=== PATIENT | female | born 1950 | race American Indian/Alaskan Native ===

== ENCOUNTER 2016-12-13 08:49 | Outpatient (CLI) | payer MEDICARE ==
--- NOTE | 2016-12-13 13:06 | XRay Report ---
CHEST 2 VIEWS INDICATION: Chronic kidney disease. COMPARISON: 12/09/2015 FINDINGS: PA and lateral chest radiographs demonstrate new right-sided double-lumen catheter tip about the cavoatrial junction. Slightly smaller heart size with normal mediastinal and hilar contours. Mild aortic knob calcifications. Clear lungs. No pleural effusions or CHF. Mild multilevel spinal degenerative changes. CONCLUSION: No acute chest process with interval uncomplicated right-sided central catheter placement, as described. Thank you for the opportunity to participate in this patient's care.
== END 2016-12-13 08:50 | disposition home or self-care (01) ==
LOC: XRAY 08:49
PROVIDERS: ATTEND Internal Medicine Nephrology
DX: I13.2 Hypertensive heart and chronic kidney disease with heart failure and with stage 5 chronic kidney disease, or end stage renal disease (principal); N18.5 Chronic kidney disease, stage 5; I50.9 Heart failure, unspecified; E11.22 Type 2 diabetes mellitus with diabetic chronic kidney disease; I70.0 Atherosclerosis of aorta; M47.899 Other spondylosis, site unspecified
CPT/HCPCS: 71020

== ENCOUNTER 2017-01-24 09:19 | Emergency (ER) | payer MEDICARE ==
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
[2017-01-24 12:08] LABS: BUN/Creatinine Ratio 15.4; Calcium 9.5 mg/dL (8.4-10.2); Chloride 99.9 mmol/L (98-107); Potassium 4.9 mmol/L (3.6-5.0)
[2017-01-24 12:14] LABS: Hematocrit 37.4 % (30.3-42.9); Mean Corpuscular HGB Conc 32 % (30-34); Mean Corpuscular Hemoglobin 31 pg (28-32); Mean Corpuscular Volume 96 fl (79-97); Platelet Count 349 K/mm3 (140-440); Red Blood Count 3.91 M/mm3 (3.65-5.03); Red Cell Distribution Width 16.1 % (13.2-15.2); White Blood Count 5.2 K/mm3 (4.5-11.0)
[2017-01-24 13:50] VITALS: BP 130/62
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
== END 2017-01-24 15:01 | disposition home or self-care (01) ==
LOC: ED 09:19
DX: E11.22 Type 2 diabetes mellitus with diabetic chronic kidney disease (principal); I12.0 Hypertensive chronic kidney disease with stage 5 chronic kidney disease or end stage renal disease; Z99.2 Dependence on renal dialysis; N18.6 End stage renal disease; E78.00 Pure hypercholesterolemia, unspecified; Z79.82 Long term (current) use of aspirin; Z88.2 Allergy status to sulfonamides
CPT/HCPCS: 36415; 80048; 85025; 99283

== ENCOUNTER 2022-02-07 07:28 | Inpatient (IN) | payer MEDICARE, OTHER ==
[2022-02-07] MEDS ORDERED: SODIUM BICARB 8.4% 50 MEQ/50 ML SYRINGE IV ONE ×2 (09:36→09:38)
--- NOTE | 2022-02-07 10:11 | XRay Report ---
CHEST 1 VIEW 02/07/2022 9:45 AM INDICATION / CLINICAL INFORMATION: Altered Mental Status. COMPARISON: 12/13/2016 FINDINGS: SUPPORT DEVICES: None. HEART / MEDIASTINUM: No significant abnormality. LUNGS / PLEURA: No significant pulmonary or pleural abnormality. No pneumothorax. ADDITIONAL FINDINGS: No significant additional findings. IMPRESSION: 1. No acute findings. Signer Name: Evan Sales Jr, MD Signed: 02/07/2022 10:06 AM Workstation Name: [id number]
[2022-02-07 10:51] LABS: Albumin 4.3 g/dL (3.9-5); Calcium 10.4 mg/dL (8.4-10.2)
[2022-02-07 11:08] LABS: Basophils % (Auto) 0.6 % (0.0-1.8); Eosinophils # (Auto) 0.1 K/mm3 (0.0-0.4); Eosinophils % (Auto) 3.1 % (0.0-4.3); Hematocrit 30.5 % (30.3-42.9); Hemoglobin 9.8 gm/dl (10.1-14.3); Lymphocytes # (Auto) 1.5 K/mm3 (1.2-5.4); Lymphocytes % (Auto) 31.2 % (13.4-35.0); Mean Corpuscular HGB Conc 32 % (30-34); Mean Corpuscular Volume 96 fl (79-97); Monocytes # (Auto) 0.4 K/mm3 (0.0-0.8); Monocytes % (Auto) 7.9 % (0.0-7.3); Platelet Count 226 K/mm3 (140-440); Red Blood Count 3.19 M/mm3 (3.65-5.03); Red Cell Distribution Width 14.9 % (13.2-15.2)
[2022-02-07 11:12] LABS: Chol/HDL Ratio 2.05 %
--- NOTE | 2022-02-07 12:27 | Emergency Department Report ---
- General Chief complaint: Weakness Stated complaint: LOW BP PUI?: No Time Seen by Provider: 02/07/22 09:31 Source: patient, EMS Mode of arrival: Stretcher Limitations: No Limitations - History of Present Illness Initial comments: BRADYCARDIA. PATIENT WAS AT [facility], THEY CALLED EMS FOR BRADYCARDIA HR 40 MD Complaint: generalized weakness -: hour(s) Severity scale (0 -10): 0 Improves with: none Worsens with: none Associated Symptoms: denies: denies other symptoms, chest pain - Related Data Home Medications Medication Instructions Recorded Confirmed Last Taken AtorvaSTATin 10 mg PO QHS 06/11/16 06/11/16 Unknown Ferrous Gluconate [Fergon 325 MG 325 mg PO BID 06/11/16 06/11/16 Unknown tab] Furosemide [Lasix TAB] 80 mg PO BID 06/11/16 06/11/16 Unknown Previous Rx's Medication Instructions Recorded Last Taken Type Aspirin [Aspirin BABY CHEW TAB] 81 mg PO QDAY tab.chew 12/13/15 Unknown Rx Losartan [Cozaar] 25 mg PO QDAY #30 tablet 12/13/15 Unknown Rx Furosemide [Lasix TAB] 40 mg PO QDAY #20 tablet 06/11/16 Unknown Rx Hydralazine HCl [Apresoline TAB] 50 mg PO BID #30 tablet 06/11/16 Unknown Rx Allergies Allergy/AdvReac Type Severity Reaction Status Date / Time Sulfa (Sulfonamide Allergy Hives Verified 02/07/22 07:48 Antibiotics) ED Review of Systems ROS: Stated complaint: LOW BP Other details as noted in HPI Constitutional: denies: chills, fever Eyes: denies: eye pain, eye discharge, vision change ENT: denies: ear pain, throat pain Respiratory: denies: cough, shortness of breath, wheezing Cardiovascular: denies: chest pain, palpitations Endocrine: no symptoms reported Gastrointestinal: denies: abdominal pain, nausea, diarrhea Genitourinary: denies: urgency, dysuria, discharge Musculoskeletal: denies: back pain, joint swelling, arthralgia Skin: denies: rash, lesions Neurological: denies: headache, weakness, paresthesias Psychiatric: denies: anxiety, depression Hematological/Lymphatic: denies: easy bleeding, easy bruising ED Past Medical Hx - Past Medical History Hx Hypertension: Yes Hx Congestive Heart Failure: Yes Hx Diabetes: Yes Hx Renal Disease: Yes Additional medical history: high cholesterol - Surgical History Additional Surgical History: Port in Left arm - Social History Smoking Status: Never Smoker Substance Use Type: None - Medications Home Medications: Home Medications Medication Instructions Recorded Confirmed Last Taken Type Aspirin [Aspirin BABY CHEW TAB] 81 mg PO QDAY tab.chew 12/13/15 06/11/16 Unknown Rx Losartan [Cozaar] 25 mg PO QDAY #30 tablet 12/13/15 06/11/16 Unknown Rx AtorvaSTATin 10 mg PO QHS 06/11/16 06/11/16 Unknown History Ferrous Gluconate [Fergon 325 MG 325 mg PO BID 06/11/16 06/11/16 Unknown History tab] Furosemide [Lasix TAB] 40 mg PO QDAY #20 tablet 06/11/16 Unknown Rx Furosemide [Lasix TAB] 80 mg PO BID 06/11/16 06/11/16 Unknown History Hydralazine HCl [Apresoline TAB] 50 mg PO BID #30 tablet 06/11/16 Unknown Rx ED Physical Exam - General Limitations: No Limitations General appearance: alert, in no apparent distress - Head Head exam: Present: atraumatic, normocephalic - Eye Eye exam: Present: normal appearance - ENT ENT exam: Present: mucous membranes moist - Neck Neck exam: Present: normal inspection - Respiratory Respiratory exam: Present: normal lung sounds bilaterally. Absent: respiratory distress - Cardiovascular Cardiovascular Exam: Present: regular rate, normal rhythm. Absent: systolic murmur, diastolic murmur, rubs, gallop - GI/Abdominal GI/Abdominal exam: Present: soft, normal bowel sounds - Extremities Exam Extremities exam: Present: normal inspection - Back Exam Back exam: Present: normal inspection - Neurological Exam Neurological exam: Present: alert, oriented X3 - Psychiatric Psychiatric exam: Present: normal affect, normal mood - Skin Skin exam: Present: warm, dry, intact, normal color. Absent: rash ED Course Vital Signs 02/07/22 02/07/22 07:29 09:29 Temperature 98.0 F 97.6 F Pulse Rate 40 L 42 L Respiratory 16 20 Rate Blood Pressure 150/47 Blood Pressure 100/60 150/47 [Left] O2 Sat by Pulse 98 97 Oximetry ED Medical Decision Making - Lab Data Result diagrams: 02/07/22 10:03 02/07/22 10:03 - EKG Data -: EKG Interpreted by Id Rate: bradycardia - EKG Data Interpretation: no acute changes - Radiology Data Radiology results: report reviewed, image reviewed - Medical Decision Making bicarb given , HR went up to 7os spoke with dr Davis will admit Critical care attestation.: If time is entered above; I have spent that time in minutes in the direct care of this critically ill patient, excluding procedure time. ED Disposition Clinical Impression: Chronic renal insufficiency, Symptomatic bradycardia, Renal failure, Dizziness Disposition: ADMITTED INPATIENT Is pt being admited?: Yes Does the pt Need Aspirin: No Condition: Stable Referrals: PRIMARY CARE, [Primary Care Provider] - 3-5 Days
[2022-02-07] MEDS ORDERED: SODIUM CHLORIDE 0.9% 100 ML IV PRN (12:49)
[2022-02-07 14:57] LABS: Hepatitis B Surface Antigen Non-Reactive (Negative); Hepatitis C Virus Antibody Non-Reactive (NonReactive)
[2022-02-07] MEDS ORDERED: SODIUM CHLORIDE 0.9% 1000 ML 1,000 ML IV SCH (16:30)
[2022-02-07] MEDS ORDERED: MORPHINE 2 MG/1 ML INJ IV PRN (17:00)
[2022-02-07] MEDS ORDERED: ACETAMINOPHEN 325 MG TAB PO PRN (17:00)
[2022-02-07] MEDS ORDERED: ONDANSETRON 4 MG/2 ML INJ IV PRN (17:00)
[2022-02-07] MEDS: FERROUS GLUCONATE 324 MG TAB PO SCH (17:42)
[2022-02-07] MEDS: ASPIRIN 81 MG TAB CHEW PO SCH (17:42)
[2022-02-07] MEDS: LOSARTAN 25 MG TAB PO SCH (17:42)
[2022-02-07] MEDS ORDERED: hydrALAZINE 25 MG TAB PO SCH (22:00)
[2022-02-07] MEDS ORDERED: NON-FORMULARY EACH (Hydralazine Hcl [Apresoline Tab] 50 MG Tablet) PO SCH (22:00)
[2022-02-08 05:55] LABS: Basophils % (Auto) 0.7 % (0.0-1.8); Eosinophils # (Auto) 0.2 K/mm3 (0.0-0.4); Eosinophils % (Auto) 4.1 % (0.0-4.3); Hematocrit 30.8 % (30.3-42.9); Lymphocytes # (Auto) 1.2 K/mm3 (1.2-5.4); Lymphocytes % (Auto) 24.6 % (13.4-35.0); Mean Corpuscular HGB Conc 33 % (30-34); Mean Corpuscular Volume 93 fl (79-97); Monocytes # (Auto) 0.4 K/mm3 (0.0-0.8); Monocytes % (Auto) 7.3 % (0.0-7.3); Platelet Count 247 K/mm3 (140-440); Red Blood Count 3.33 M/mm3 (3.65-5.03); Red Cell Distribution Width 14.6 % (13.2-15.2)
[2022-02-08 06:15] LABS: Albumin 4.1 g/dL (3.9-5); Calcium 9.7 mg/dL (8.4-10.2)
--- NOTE | 2022-02-08 06:52 | History and Physical Report ---
History of Present Illness Date of examination: 02/07/22 Date of admission: 02/07/22 16:24 Chief complaint: Decreased heart rate and generalized weakness History of present illness: -71year-old female with history of end-stage renal disease and hypertension comes to the emergency room for severe weakness. Patient was in the dialysis clinic when she was found to have low heart rate of around 40 for which she was sent here. In the emergency room patient's heart rate fluctuated between 40 and 60. EKG was consistent with second-degree AV block. Cardiology consult was requested. No shortness of breath. No chest pain. No exacerbating or relieving factors. No fever or chills. - Past Medical History Hx Hypertension: Yes Hx Congestive Heart Failure: Yes Hx Diabetes: Yes Hx Renal Disease: Yes Additional medical history: high cholesterol - Surgical History Additional Surgical History: Port in Left arm - Social History Smoking Status: Never Smoker Substance Use Type: None - Medications Home Medications: Home Medications Medication Instructions Recorded Confirmed Last Taken Type Aspirin [Aspirin BABY CHEW TAB] 81 mg PO QDAY tab.chew 12/13/15 06/11/16 Unknow n Rx Losartan [Cozaar] 25 mg PO QDAY #30 tablet 12/13/15 06/11/16 Unknown Rx AtorvaSTATin 10 mg PO QHS 06/11/16 06/11/16 Unknown History Ferrous Gluconate [Fergon 325 MG 325 mg PO BID 06/11/16 06/11/16 Unknown History tab] Furosemide [Lasix TAB] 40 mg PO QDAY #20 tablet 06/11/16 Unknown Rx Furosemide [Lasix TAB] 80 mg PO BID 06/11/16 06/11/16 Unknown History Hydralazine HCl [Apresoline TAB] 50 mg PO BID #30 tablet 06/11/16 Unknown Rx Review of Systems ROS: Stated complaint: LOW BP Other details as noted in HPI Constitutional: denies: chills, fever Eyes: denies: eye pain, eye discharge, vision change ENT: denies: ear pain, throat pain Respiratory: denies: cough, shortness of breath, wheezing Cardiovascular: denies: chest pain, palpitations Endocrine: no symptoms reported Gastrointestinal: denies: abdominal pain, nausea, diarrhea Genitourinary: denies: urgency, dysuria, discharge Musculoskeletal: denies: back pain, joint swelling, arthralgia Skin: denies: rash, lesions Neurological: denies: headache, weakness, paresthesias Psychiatric: denies: anxiety, depression Hematological/Lymphatic: denies: easy bleeding, easy bruising Medications and Allergies Allergies Allergy/AdvReac Type Severity Reaction Status Date / Time Sulfa (Sulfonamide Allergy Hives Verified 02/07/22 07:48 Antibiotics) Home Medications Medication Instructions Recorded Confirmed Last Taken Type Aspirin [Aspirin BABY CHEW TAB] 81 mg PO QDAY tab.chew 12/13/15 02/08/22 Unknown Rx AtorvaSTATin 10 mg PO QHS 06/11/16 02/08/22 Unknown History AtorvaSTATin 10 mg PO DAILY 02/08/22 02/08/22 Unknown History B Complex 11/Folic/C/Biot/Zinc 1 each PO DAILY 02/08/22 02/08/22 Unknown History [Dialyvite with Zinc Tablet] Sevelamer Carbonate [Renvela] 2.4 g PO TID 02/08/22 02/08/22 Unknown History hydrALAZINE [Apresoline TAB] 100 mg PO TID 02/08/22 02/08/22 Unknown History Active Meds: Active Medications Acetaminophen (Acetaminophen 325 Mg Tab) 650 mg PO Q4H PRN PRN Reason: Pain MILD(1-3)/Fever >100.5/PALM Aspirin (Aspirin 81 Mg Tab Chew) 81 mg PO QDAY [facility] Last Admin: 02/07/22 17:42 Dose: Not Given Atorvastatin Calcium (Atorvastatin 10 Mg Tab) 10 mg PO QHS [facility] Last Admin: 02/07/22 23:10 Dose: 10 mg Ferrous Gluconate (Ferrous Gluconate 324 Mg Tab) 324 mg PO QDAY [facility] Last Admin: 02/07/22 17:42 Dose: Not Given Furosemide (Furosemide 40 Mg Tab) 40 mg PO QDAY [facility] Hydralazine HCl (Hydralazine 25 Mg Tab) 50 mg PO BID [facility] Last Admin: 02/07/22 23:10 Dose: 50 mg Sodium Chloride (Nacl 0.9%) 100 mls @ 999 mls/hr IV MARISOL PRN PRN Reason: Hypotension Sodium Chloride (Nacl 0.9% 1000 Ml) 1,000 mls @ 75 mls/hr IV DIRECT MICAELA Losartan Potassium (Losartan 25 Mg Tab) 25 mg PO QDAY [facility] Last Admin: 02/07/22 17:42 Dose: Not Given Morphine Sulfate (Morphine 2 Mg/1 Ml Inj) 2 mg IV Q4H PRN PRN Reason: Pain, Moderate (4-6) Ondansetron HCl (Ondansetron 4 Mg/2 Ml Inj) 4 mg IV Q8H PRN PRN Reason: Nausea And Vomiting Sodium Chloride (Sodium Chloride 0.9% 10 Ml Flush Syringe) 10 ml IV BID [facility] Last Admin: 02/07/22 23:10 Dose: 10 ml Sodium Chloride (Sodium Chloride 0.9% 10 Ml Flush Syringe) 10 ml IV PRN PRN PRN Reason: LINE FLUSH Exam - Constitutional Vitals: Temp Pulse Resp BP Pulse Ox 99.2 F 66 16 139/46 98 02/08/22 06:29 02/08/22 06:29 02/08/22 06:29 02/08/22 06:29 02/08/22 06:29 HEART Score - HEART Score Troponin: Troponin T 0.073 ng/mL (0.00-0.029) H 02/07/22 10:03 Results - Labs CBC & Chem 7: 02/08/22 05:06 02/08/22 05:06 Labs: Laboratory Last Values WBC 4.8 K/mm3 (4.5-11.0) 02/08/22 05:06 RBC 3.33 M/mm3 (3.65-5.03) L 02/08/22 05:06 Hgb 10.0 gm/dl (10.1-14.3) L 02/08/22 05:06 Hct 30.8 % (30.3-42.9) 02/08/22 05:06 MCV 93 fl (79-97) 02/08/22 05:06 MCH 30 pg (28-32) 02/08/22 05:06 MCHC 33 % (30-34) 02/08/22 05:06 RDW 14.6 % (13.2-15.2) 02/08/22 05:06 Plt Count 247 K/mm3 (140-440) 02/08/22 05:06 Lymph % (Auto) 24.6 % (13.4-35.0) 02/08/22 05:06 Harlan % (Auto) 7.3 % (0.0-7.3) 02/08/22 05:06 Eos % (Auto) 4.1 % (0.0-4.3) 02/08/22 05:06 Baso % (Auto) 0.7 % (0.0-1.8) 02/08/22 05:06 Lymph # (Auto) 1.2 K/mm3 (1.2-5.4) 02/08/22 05:06 Harlan # (Auto) 0.4 K/mm3 (0.0-0.8) 02/08/22 05:06 Eos # (Auto) 0.2 K/mm3 (0.0-0.4) 02/08/22 05:06 Baso # (Auto) 0.0 K/mm3 (0.0-0.1) 02/08/22 05:06 Seg Neutrophils % 63.3 % (40.0-70.0) 02/08/22 05:06 Seg Neutrophils # 3.1 K/mm3 (1.8-7.7) 02/08/22 05:06 Sodium 147 mmol/L (137-145) H 02/08/22 05:06 Potassium 4.2 mmol/L (3.6-5.0) 02/08/22 05:06 Chloride 101.1 mmol/L (98-107) 02/08/22 05:06 Carbon Dioxide 33 mmol/L (22-30) H D 02/08/22 05:06 Anion Gap 17 mmol/L 02/08/22 05:06 BUN 24 mg/dL (7-17) H 02/08/22 05:06 Creatinine 5.0 mg/dL (0.6-1.2) H 02/08/22 05:06 Estimated GFR 10 ml/min 02/08/22 05:06 BUN/Creatinine Ratio 5 % 02/08/22 05:06 Glucose 83 mg/dL (65-100) 02/08/22 05:06 POC Glucose 106 mg/dL (70-105) H 02/07/22 22:10 Calcium 9.7 mg/dL (8.4-10.2) 02/08/22 05:06 Total Bilirubin 0.30 mg/dL (0.1-1.2) 02/08/22 05:06 AST 24 units/L (5-40) 02/08/22 05:06 ALT 18 units/L (7-56) 02/08/22 05:06 Alkaline Phosphatase 108 units/L (35-129) 02/08/22 05:06 Total Creatine Kinase 269 units/L (30-135) H 02/07/22 10:03 Troponin T 0.073 ng/mL (0.00-0.029) H 02/07/22 10:03 Total Protein 6.8 g/dL (6.3-8.2) 02/08/22 05:06 Albumin 4.1 g/dL (3.9-5) 02/08/22 05:06 Albumin/Globulin Ratio 1.5 % 02/08/22 05:06 Triglycerides 67 mg/dL (2-149) 02/07/22 10:03 Cholesterol 140 mg/dL (50-199) 02/07/22 10:03 LDL Cholesterol Direct 58 mg/dL (50-130) 02/07/22 10:03 HDL Cholesterol 68 mg/dL (40-59) H 02/07/22 10:03 Cholesterol/HDL Ratio 2.05 % 02/07/22 10:03 Hepatitis A IgM Ab Non-reactive (NonReactive) 02/07/22 10:03 Hep Bs Antigen Non-reactive (Negative) 02/07/22 10:03 Hep B Core IgM Ab Non-reactive (NonReactive) 02/07/22 10:03 Hepatitis C Antibody Non-reactive (NonReactive) 02/07/22 10:03 - Imaging and Cardiology EKG: report reviewed (Second-degree AV block) Assessment and Plan Advance Directives: Yes (Full code) VTE prophylaxis?: Chemical Plan of care discussed with patient/family: Yes - Patient Problems (1) Symptomatic bradycardia Current Visit: Yes Status: Acute Plan to address problem: Second-degree AV block Questionable Mobitz type II Cardiology consult requested (2) End-stage renal disease on hemodialysis Current Visit: Yes Status: Chronic Plan to address problem: Continue hemodialysis as per schedule Neephrology consulted (3) Hypertension Current Visit: No Status: Chronic Qualifiers: Hypertension type: essential hypertension Qualified Code(s): I10 - Essential (primary) hypertension Plan to address problem: Continue antihypertensives and adjust medications as necessary (4) Hyperlipidemia Current Visit: Yes Status: Chronic Qualifiers: Hyperlipidemia type: mixed hyperlipidemia Qualified Code(s): E78.2 - Mixed hyperlipidemia Plan to address problem: Continue statins (5) DVT prophylaxis Current Visit: Yes Status: Acute Plan to address problem: On heparin and GI prophylaxis (6) Advance care planning Current Visit: Yes Status: Acute Plan to address problem: Disease education conducted, care plan discussed, diagnosis and prognosis discussed. Patient is full code. Patient acknowledged understanding of care plan. +30 minutes.
[2022-02-08] MEDS ORDERED: SEVELAMER CARBONATE PO SCH (08:00)
[2022-02-08] MEDS ORDERED: hydrALAZINE 100 MG TAB PO SCH (08:00)
--- NOTE | 2022-02-08 08:57 | Consultation ---
History of Present Illness - Reason for Consult Consult date: 02/08/22 end stage renal disease Medications and Allergies Allergies Allergy/AdvReac Type Severity Reaction Status Date / Time Sulfa (Sulfonamide Allergy Hives Verified 02/07/22 07:48 Antibiotics) Home Medications Medication Instructions Recorded Confirmed Last Taken Type Aspirin [Aspirin BABY CHEW TAB] 81 mg PO QDAY tab.chew 12/13/15 02/08/22 Unknown Rx AtorvaSTATin 10 mg PO QHS 06/11/16 02/08/22 Unknown History AtorvaSTATin 10 mg PO DAILY 02/08/22 02/08/22 Unknown History B Complex 11/Folic/C/Biot/Zinc 1 each PO DAILY 02/08/22 02/08/22 Unknown History [Dialyvite with Zinc Tablet] Sevelamer Carbonate [Renvela] 2.4 g PO TID 02/08/22 02/08/22 Unknown History hydrALAZINE [Apresoline TAB] 100 mg PO TID 02/08/22 02/08/22 Unknown History Active Meds: Active Medications Acetaminophen (Acetaminophen 325 Mg Tab) 650 mg PO Q4H PRN PRN Reason: Pain MILD(1-3)/Fever >100.5/PALM Aspirin (Aspirin 81 Mg Tab Chew) 81 mg PO QDAY [facility] Last Admin: 02/07/22 17:42 Dose: Not Given Atorvastatin Calcium (Atorvastatin 10 Mg Tab) 10 mg PO QHS [facility] Last Admin: 02/07/22 23:10 Dose: 10 mg Ferrous Gluconate (Ferrous Gluconate 324 Mg Tab) 324 mg PO QDAY [facility] Last Admin: 02/07/22 17:42 Dose: Not Given Furosemide (Furosemide 40 Mg Tab) 40 mg PO QDAY [facility] Hydralazine HCl (Hydralazine 100 Mg Tab) 100 mg PO TID [facility] Sodium Chloride (Nacl 0.9%) 100 mls @ 999 mls/hr IV MARISOL PRN PRN Reason: Hypotension Sodium Chloride (Nacl 0.9% 1000 Ml) 1,000 mls @ 75 mls/hr IV DIRECT [facility] Losartan Potassium (Losartan 25 Mg Tab) 25 mg PO QDAY [facility] Last Admin: 02/07/22 17:42 Dose: Not Given Miscellaneous Medication (Sevelamer Carbonate [Renvela]) 2.4 g PO TID [facility] Morphine Sulfate (Morphine 2 Mg/1 Ml Inj) 2 mg IV Q4H PRN PRN Reason: Pain, Moderate (4-6) Ondansetron HCl (Ondansetron 4 Mg/2 Ml Inj) 4 mg IV Q8H PRN PRN Reason: Nausea And Vomiting Sodium Chloride (Sodium Chloride 0.9% 10 Ml Flush Syringe) 10 ml IV BID [facility] Last Admin: 02/07/22 23:10 Dose: 10 ml Sodium Chloride (Sodium Chloride 0.9% 10 Ml Flush Syringe) 10 ml IV PRN PRN PRN Reason: LINE FLUSH Exam - Vital Signs Vital signs: Vital Signs Temp Pulse Resp BP Pulse Ox 98.0 F 40 L 16 100/60 98 02/07/22 07:29 02/07/22 07:29 02/07/22 07:29 02/07/22 07:29 02/07/22 07:29 Results - Lab Results 02/08/22 05:06 02/08/22 05:06 Most recent lab results Calcium 9.7 mg/dL (8.4-10.2) 02/08/22 05:06
[2022-02-08 10:32] VITALS: BP 149/46
[2022-02-08] MEDS: ASPIRIN 81 MG TAB CHEW PO SCH (10:34)
[2022-02-08] MEDS: LOSARTAN 25 MG TAB PO SCH (10:34)
[2022-02-08] MEDS: FUROSEMIDE 40 MG TAB PO SCH ×2 (10:34→10:39)
[2022-02-08] MEDS: FERROUS GLUCONATE 324 MG TAB PO SCH (10:34)
[2022-02-08] MEDS ORDERED: SEVELAMER CARBONATE 800 MG TAB PO SCH (11:30)
--- NOTE | 2022-02-08 12:57 | Consultation ---
History of Present Illness Consult date: 02/08/22 Consult reason: bradycardia History of present illness: The patient is a 71-year-old woman who has end-stage renal disease on hemodi alysis, referred from the hemodialysis unit for bradycardia noted during her dialysis treatment. They report in the hospital triage states that her heart rate was 40s, but no available ECGs or telemetry strips for rhythm documentation. On emergency room presentation, she was a sinus bradycardia at 58. During her course in the hospital she has remained sinus in the low 60s with a single Wenckebach cycle that was captured on telemetry monitoring. The patient records show that she has a longstanding history of asymptomatic bradycardia documented as far back as 2015. At that time, she was worked up for junctional bradycardia and her records reported "chronically low heart rate". She follows up in the outpatient setting with Dr. Vega, but it is uncertain if she has seen an hybrid car mechanic. A cardiac catheterization in 2011 was reported within normal limits. Patient is currently comfortable, with no chest pain, no shortness of breath, but worries that her dialysis treatments are being interrupted every time she develops a transient marked bradycardia. Chest x-ray on this presentation shows borderline cardiomegaly, but clear lungs. Laboratory exam showed potassium of 5 .2 on presentation. Past History Past Medical History: arrhythmia, ESRD, hypertension Medications and Allergies Allergies Allergy/AdvReac Type Severity Reaction Status Date / Time Sulfa (Sulfonamide Allergy Hives Verified 02/07/22 07:48 Antibiotics) Home Medications Medication Instructions Recorded Confirmed Last Taken Type Aspirin [Aspirin BABY CHEW TAB] 81 mg PO QDAY tab.chew 12/13/15 02/08/22 Unknown Rx AtorvaSTATin 10 mg PO QHS 06/11/16 02/08/22 Unknown History AtorvaSTATin 10 mg PO DAILY 02/08/22 02/08/22 Unknown History B Complex 11/Folic/C/Biot/Zinc 1 each PO DAILY 02/08/22 02/08/22 Unknown History [Dialyvite with Zinc Tablet] Sevelamer Carbonate [Renvela] 2.4 g PO TID 02/08/22 02/08/22 Unknown History hydrALAZINE [Apresoline TAB] 100 mg PO TID 02/08/22 02/08/22 Unknown History Active Meds: Active Medications Acetaminophen (Acetaminophen 325 Mg Tab) 650 mg PO Q4H PRN PRN Reason: Pain MILD(1-3)/Fever >100.5/PALM Aspirin (Aspirin 81 Mg Tab Chew) 81 mg PO QDAY [facility] Last Admin: 02/08/22 10:34 Dose: 81 mg Atorvastatin Calcium (Atorvastatin 10 Mg Tab) 10 mg PO QHS [facility] Last Admin: 02/07/22 23:10 Dose: 10 mg Ferrous Gluconate (Ferrous Gluconate 324 Mg Tab) 324 mg PO QDAY [facility] Last Admin: 02/08/22 10:34 Dose: 324 mg Furosemide (Furosemide 40 Mg Tab) 40 mg PO QDAY [facility] Last Admin: 02/08/22 10:39 Dose: Not Given Hydralazine HCl (Hydralazine 100 Mg Tab) 100 mg PO TID [facility] Last Admin: 02/08/22 10:34 Dose: 100 mg Sodium Chloride (Nacl 0.9%) 100 mls @ 999 mls/hr IV MARISOL PRN PRN Reason: Hypotension Sodium Chloride (Nacl 0.9% 1000 Ml) 1,000 mls @ 75 mls/hr IV DIRECT [facility] Losartan Potassium (Losartan 25 Mg Tab) 25 mg PO QDAY [facility] Last Admin: 02/08/22 10:34 Dose: 25 mg Morphine Sulfate (Morphine 2 Mg/1 Ml Inj) 2 mg IV Q4H PRN PRN Reason: Pain, Moderate (4-6) Ondansetron HCl (Ondansetron 4 Mg/2 Ml Inj) 4 mg IV Q8H PRN PRN Reason: Nausea And Vomiting Sevelamer Carbonate (Sevelamer Carbonate 800 Mg Tab) 2,400 mg PO AC [facility] Last Admin: 02/08/22 10:34 Dose: 2,400 mg Sodium Chloride (Sodium Chloride 0.9% 10 Ml Flush Syringe) 10 ml IV BID [facility] Last Admin: 02/08/22 10:34 Dose: 10 ml Sodium Chloride (Sodium Chloride 0.9% 10 Ml Flush Syringe) 10 ml IV PRN PRN PRN Reason: LINE FLUSH Review of Systems Cardiovascular: no chest pain, no orthopnea, no palpitations, no rapid/irregular heart beat, no edema, no syncope, no lightheadedness, no shortness of breath Physical Examination Vital Signs Temp Pulse Resp BP Pulse Ox 98.0 F 40 L 16 100/60 98 02/07/22 07:29 02/07/22 07:29 02/07/22 07:29 02/07/22 07:29 02/07/22 07:29 General appearance: no acute distress HEENT: Positive: PERRL Neck: Positive: neck supple Cardiac: Positive: Reg Rate and Rhythm Lungs: Positive: Decreased Breath Sounds Neuro: Positive: Grossly Intact Abdomen: Positive: Soft Female genitourinary: deferred Skin: Positive: Clear Extremities: Absent: edema Results 02/08/22 05:06 02/08/22 05:06 Cardiac Enzymes 02/08/22 Range/Units 05:06 AST 24 (5-40) units/L CBC 02/08/22 Range/Units 05:06 WBC 4.8 (4.5-11.0) K/mm3 RBC 3.33 L (3.65-5.03) M/mm3 Hgb 10.0 L (10.1-14.3) gm/dl Hct 30.8 (30.3-42.9) % Plt Count 247 (140-440) K/mm3 Lymph # (Auto) 1.2 (1.2-5.4) K/mm3 [place] # (Auto) 0.4 (0.0-0.8) K/mm3 Eos # (Auto) 0.2 (0.0-0.4) K/mm3 Baso # (Auto) 0.0 (0.0-0.1) K/mm3 Comprehensive Metabolic Panel 02/08/22 Range/Units 05:06 Sodium 147 H (137-145) mmol/L Potassium 4.2 (3.6-5.0) mmol/L Chloride 101.1 (98-107) mmol/L Carbon Dioxide 33 H D (22-30) mmol/L BUN 24 H (7-17) mg/dL Creatinine 5.0 H (0.6-1.2) mg/dL Glucose 83 (65-100) mg/dL Calcium 9.7 (8.4-10.2) mg/dL AST 24 (5-40) units/L ALT 18 (7-56) units/L Alkaline Phosphatase 108 (35-129) units/L Total Protein 6.8 (6.3-8.2) g/dL Albumin 4.1 (3.9-5) g/dL EKG interpretations - Telemetry EKG Rhythm: Sinus Bradycardia Assessment and Plan - Patient Problems (1) Bradycardia Current Visit: Yes Status: Acute Plan to address problem: 71-year-old woman with end-stage renal disease on hemodialysis, and history of chronic asymptomatic bradycardia, currently comfortable in no acute distress with heart rate in the 60s. Patient is stable for cardiac discharge, we will recommend 48-hour Holter monitoring to extend through her next dialysis treatments, for optimal rhythm documentation, with outpatient electrophysiology assessment with regards to any interventions that may allow uninterrupted dialysis management.
--- NOTE | 2022-02-08 14:22 | Discharge Summary ---
Providers - Providers Date of Admission: 02/07/22 16:24 Date of discharge: 02/08/22 Attending physician: PHILLIP SUMMERS MD 02/07/22 12:24 Consult to Physician [CONS] Stat Comment: Consulting Provider: YVETTE LA Physician Instructions: Reason For Exam: dialysis 02/07/22 12:57 Consult to Physician [CONS] Routine Comment: Consulting Provider: CHON RHOADES Physician Instructions: Reason For Exam: Bradycardia 02/07/22 16:41 Consult to Physician [CONS] Routine Comment: Consulting Provider: JAYANT BARRON Physician Instructions: Reason For Exam: ESRD Primary care physician: CRYOGENICS ENGINEER Hospitalization Reason for admission: Symptomatic bradycardia Condition: Stable Hospital course: Patient is a 71-year-old female with history of ESRD requiring hemodialysis and hypertension who presented after having low heart rate during dialysis. Initial EKG showed second-degree AV block. Cardiology evaluated the patient and recommended outpatient Holter monitor and EP follow-up. 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 Disposition: 01 HOME / SELF CARE / HOMELESS Final Discharge Diagnosis (Prints w/discharge instructions): Symptomatic bradycardia. ESRD requiring hemodialysis. Hypertension. Hyperlipidemia Time spent for discharge: 40 minutes Core Measure Documentation - Palliative Care Palliative Care/ Comfort Measures: Not Applicable - Core Measures Any of the following diagnoses?: none Exam - Physical Exam Narrative exam: GENERAL: Well-developed well-nourished. Sitting on the side of the bed in no acute distress eating breakfast. HEENT: Normocephalic. Atraumatic. NECK: Supple. CHEST/LUNGS: CTAB on room air HEART/CARDIOVASCULAR: RRR. No murmur, rubs or gallops appreciated. ABDOMEN: +BS. NT/ND. SKIN: No rashes noted. NEURO: No focal motor deficit. Follows all commands and is ambulatory. MUSCULOSKELETAL: No joint effusion EXTREMITIES: No cyanosis, clubbing or edema. PSYCH: Cooperative. - Constitutional Vitals: Temp Pulse Resp BP Pulse Ox 98.1 F 66 20 149/46 98 02/08/22 09:43 02/08/22 12:11 02/08/22 09:43 02/08/22 10:34 02/08/22 10:00 Plan Care Plan Goals: Please make sure to go to [facility] at the [place] location today to picker packer your event monitor. Please wear the monitor as instructed. Continue with hemodialysis and please take all medications as prescribed. Follow up with: PRIMARY CARE, [Primary Care Provider] - 3-5 Days Prescriptions: Losartan [Cozaar] 25 mg PO QDAY 30 Days #30 tablet Ferrous Gluconate [Fergon 325 MG tab] 324 mg PO QDAY 30 Days #30 tablet
== END 2022-02-08 16:33 | disposition home or self-care (01) | DRG 308 ==
LOC: ED 07:28 → 4A 16:24
PROVIDERS: ADMIT Internal Medicine; ATTEND Student in an Organized Health Care Education/Training Program
PROC: 5A1D70Z Performance of Urinary Filtration, Intermittent, Less than 6 Hours Per Day (ICD-10-PCS; principal; 2022-02-07)
DX: R00.1 Bradycardia, unspecified (principal); N18.6 End stage renal disease; I13.2 Hypertensive heart and chronic kidney disease with heart failure and with stage 5 chronic kidney disease, or end stage renal disease; Z99.2 Dependence on renal dialysis; E78.00 Pure hypercholesterolemia, unspecified; E11.22 Type 2 diabetes mellitus with diabetic chronic kidney disease; I44.1 Atrioventricular block, second degree; E78.2 Mixed hyperlipidemia; Z79.82 Long term (current) use of aspirin; Z79.899 Other long term (current) drug therapy
CPT/HCPCS: 36415; 71045; 80053; 80061; 80074; 82550; 82962; 84484; 85025; 93005; 96374; 99285; G0378